=== PATIENT | female | born 1985 | race Caucasian/White ===

== ENCOUNTER 2019-06-18 09:40 | Emergency (ER) | payer OTHER ==
[~2019-06-18] VITALS: Ht 157.5 cm; Wt 68.0 kg
[2019-06-18 09:58] VITALS: BP 121/73; Ht 157.5 cm; Wt 68.0 kg
== END 2019-06-18 11:05 | disposition home or self-care (01) ==
LOC: ED 09:40
DX: L03.011 Cellulitis of right finger (principal)

== ENCOUNTER 2019-06-30 13:46 | Emergency (ER) | payer OTHER ==
[~2019-06-30] VITALS: Ht 157.5 cm; Wt 72.6 kg
[2019-06-30 13:49] VITALS: Ht 157.5 cm; Wt 72.6 kg
[2019-06-30 14:26] LABS: PLATELET COUNT 357 x10^3mcL (130-400); RED CELL DISTRIBUTION WIDTH 13.1 % (11.5-14.5)
[2019-06-30 14:35] LABS: microscopic required? YES; urine erythrocyte NEGATIVE (NEGATIVE)
[2019-06-30 15:48] VITALS: BP 124/67
== END 2019-06-30 15:48 | disposition home or self-care (01) ==
LOC: ED 13:46
PROVIDERS: Emergency Medicine
DX: O21.9 Vomiting of pregnancy, unspecified (principal); Z3A.01 Less than 8 weeks gestation of pregnancy
CPT/HCPCS: 36415; Q0092; Q0162